=== PATIENT | male | born 1950 | race Caucasian/White ===

== ENCOUNTER 2018-04-19 15:26 | Inpatient (IN) | payer MEDICARE, OTHER ==
[~2018-04-19] VITALS: Ht 175.3 cm; Wt 98.9 kg
--- NOTE | 2018-04-19 15:34 | NUR ---
PT REFUSES MONITIR AND EKG AT THIS TIME.
[2018-04-19] MEDS ORDERED: ALEN70TA45 PO (16:18)
[2018-04-19] MEDS ORDERED: LEVO100T10 PO (16:18)
[2018-04-19] MEDS ORDERED: RISP2TAB23 PO (16:18)
[2018-04-19] MEDS ORDERED: SIMV20TA6 PO (16:18)
[2018-04-19] MEDS ORDERED: ASPI81TA31 PO (16:18)
[2018-04-19] MEDS ORDERED: CHOL200078 PO (16:18)
[2018-04-19] MEDS ORDERED: ALBU18HF2 IH (16:18)
[2018-04-19] MEDS ORDERED: TRIA80OI2 TP (16:18)
[2018-04-19] MEDS ORDERED: AMLO5TAB2 PO (16:18)
[2018-04-19] MEDS ORDERED: TIOT4MIS2 IH (16:18)
[2018-04-19] MEDS ORDERED: BENA20TA9 PO (16:18)
[2018-04-19 16:23] LABS: BASOPHILS % (AUTO) 0.5 % (0.0-2.0); EOSINOPHILS # (AUTO) 0.1 K/uL (0.0-0.7); HEMATOCRIT 42.9 % (36.7-47.1); HEMOGLOBIN 14.7 g/dL (12.5-16.3); MEAN CORPUSCULAR HEMOGLOBIN 31.6 uug (23.8-33.4); MEAN CORPUSCULAR HGB CONC 34 g/dL (32.5-36.3); MEAN CORPUSCULAR VOLUME 91.9 fL (73.0-96.2); MONOCYTES # (AUTO) 0.4 K/uL (2.0-10.0); MONOCYTES % (AUTO) 5.6 % (0.0-11.0); NEUTROPHILS # (AUTO) 5.4 K/uL (1.8-8.9); NEUTROPHILS % (AUTO) 78.9 % (38.5-71.5); PLATELET COUNT (AUTO) 184 K/uL (152-348); RED BLOOD CELL COUNT(AUTO) 4.66 MIL/uL (4.06-5.63); WHITE BLOOD COUNT (AUTO) 6.8 K/uL (3.6-10.2)
[2018-04-19 16:33] LABS: CARBON DIOXIDE 22 mmol/L (21-32); CHLORIDE 106 mmol/L (98-107); CREATININE 1.2 mg/dL (0.6-1.3); ETHANOL < 3 MG/DL (0-0); GLUCOSE 111 mg/dL (74-106); POTASSIUM 4.2 mmol/L (3.5-5.1); UREA NITROGEN, BLOOD 16 mg/dL (7-18)
[2018-04-19 16:39] LABS: ALANINE AMINOTRANSFERASE 29 U/L (16-63); ALKALINE PHOSPHATASE 61 U/L (50-136); ASPARTATE AMINOTRANSFERASE 23 U/L (15-37); BILIRUBIN,DIRECT 0.2 mg/dL (0.0-0.2); BILIRUBIN,TOTAL 0.7 mg/dL (0.2-1.0); TOTAL PROTEIN, SERUM 7.2 g/dL (6.4-8.2)
[2018-04-19 16:44] LABS: ACETAMINOPHEN < 2.0 ug/mL (10-30)
[2018-04-19 16:46] LABS: THYROID STIMULATING HORMONE 0.796 mIU/mL (0.358-3.740)
--- NOTE | 2018-04-19 17:00 | NUR ---
ROSY MEYER PROVIDED FOR PT.
--- NOTE | 2018-04-19 17:45 | NUR ---
PT TRANSFERED TO [facility] IN STABLE CONDITION
[2018-04-19] MEDS ORDERED: MAG HYDROX/AL HYDROX/SIMETH 30 ML LIQUID UDC PO PRN (18:00)
[2018-04-19] MEDS ORDERED: ACETAMINOPHEN 325 MG TABLET PO PRN (18:00)
[2018-04-19] MEDS ORDERED: MAGNESIUM HYDROXIDE 30 ML LIQUID UDC PO PRN (18:00)
[2018-04-19 18:49] LABS: *BLOOD, URINE NEGATIVE (NEGATIVE); *CLARITY,URINE CLEAR (CLEAR); *COLOR,URINE YELLOW (YELLOW); *KETONES,URINE TRACE (NEGATIVE); *PROTEIN,URINE 1+ (NEGATIVE); LEUKOCYTE ESTERASE ,URINE NEGATIVE (NEGATIVE); NITRITE, URINE NEGATIVE (NEGATIVE); PH,URINE 5.5 (5.0-8.0); UGLUCOSE NEGATIVE (NEGATIVE)
[2018-04-19 18:50] LABS: *BILIRUBIN,URIN 1+ (NEGATIVE)
[2018-04-19 18:57] LABS: *AMPHETAMINE, URINE NEGATIVE (NEGATIVE); *BARBITURATE, URINE NEGATIVE (NEGATIVE); *CANNABINOID, URINE NEGATIVE (NEGATIVE); *COCCAINE, URINE NEGATIVE (NEGATIVE); *OPIATE, URINE NEGATIVE (NEGATIVE); *PHENCYCLIDINE SCREEN,URINE NEGATIVE (NEGATIVE)
[2018-04-19 18:58] LABS: BACTERIA,URINE NONE SEEN /HPF (NONE SEEN); RBC,URINE 0-3 /HPF (0-3); SQUAMOUS EPITHELIAL CELL,UR FEW /HPF (NONE SEEN); YEAST,URINE FEW /HPF (NONE SEEN)
[2018-04-19 19:30] VITALS: BP 148/62
[2018-04-19] MEDS ORDERED: TEMAZEPAM 7.5 MG CAPSULE PO PRN (21:00)
--- NOTE | 2018-04-19 21:31 | NUR ---
GPS: Noted pt.to be banging on the window in his room. Pt.immediately stopped when staff went inside his room and got back to his bed. Denies feeling agitated. Ativan/Restoril offered but declined at this time. Contracts for his safety and others at this time. Will continue to monitor behavior for further escalation.
[2018-04-19] MEDS ORDERED: ALBUTEROL SULFATE 8 GM HFA.AER.AD IH PRN (23:30)
[2018-04-19] MEDS ORDERED: TRIAMCINOLONE ACET 0.1% OINT 60 GM TUBE TP PRN (23:30)
[2018-04-19] MEDS ORDERED: ALBUTEROL SULFATE 2.5 MG/3 ML NEBU INH PRN (23:45)
[2018-04-19] MEDS: LORAZEPAM 0.5 MG TABLET PO PRN (23:48)
--- NOTE | 2018-04-19 23:55 | NUR ---
GPS: Pt.is anxious,loud at times and unable to be re-directed. Ativan 0.5mg + Restoril 7.5 mg given for sleep. Will monitor effectiveness and for oversedation. Frequent limit setting provided to pt.prn.
--- NOTE | 2018-04-20 02:30 | NUR ---
GPS: Pt.still awake at this time. Frequently comes to the nurses station for no reason. Pt.yells at times and is intrusive. Constant re-direction and limit setting provided. Pt.getting testy with staff providing limits on him. Will continue to monitor.
--- NOTE | 2018-04-20 02:41 | NUR ---
GPS: Noted pt.to be singing out loud at times. When confronted pt said "I'm just having fun". Pt.was reminded that his behavior is inappropriate at this time.
[2018-04-20] MEDS: LORAZEPAM 0.5 MG TABLET PO PRN (05:54)
--- NOTE | 2018-04-20 05:55 | NUR ---
GPS: Anxious and intrusive at this time. Frequently at nurses station staring down at nurses. Easily irritable when being re-directed and when staff set limits on him. Refused Ativan 0.5mg when offered. Attempted to cheek his medication. Will continue to monitor.
[2018-04-20] MEDS ORDERED: LEVOTHYROXINE SODIUM 100 MCG TABLET PO SCH (07:30)
[2018-04-20] MEDS ORDERED: LORAZEPAM 1 MG TABLET PO PRN (08:15)
[2018-04-20] MEDS ORDERED: TRIAMCINOLONE ACET 0.1% OINT 60 GM TUBE TP PRN (08:15)
[2018-04-20] MEDS ORDERED: HALOPERIDOL LACTATE 5 MG/1 ML VIAL IM ONE (08:30)
[2018-04-20] MEDS ORDERED: LORAZEPAM 2 MG/1 ML VIAL IM ONE (08:30)
[2018-04-20] MEDS ORDERED: diphenhydrAMINE 50 MG/1 ML VIAL IM ONE (08:30)
--- NOTE | 2018-04-20 08:55 | NUR ---
GPS/RN- patient behavior escalating this am difficult to redirect. aggressive, anxious, restless, Dr Bella notified. Haldol 10mg IM once, Ativan 2mg IM once and Benadryl 25mg IM once. orders repeated back
[2018-04-20] MEDS ORDERED: ASPIRIN 81 MG TAB.CHEW PO SCH (09:00)
[2018-04-20] MEDS ORDERED: BENAZEPRIL HCL 20 MG TABLET PO SCH (09:00)
[2018-04-20] MEDS ORDERED: AMLODIPINE 5 MG TABLET PO SCH (09:00)
[2018-04-20] MEDS ORDERED: CHOLECALCIFEROL 1,000 UNIT TABLET PO SCH (09:00)
[2018-04-20] MEDS ORDERED: NICOTINE 21 MG/24HR PATCH TD SCH (09:00)
[2018-04-20] MEDS ORDERED: OLANZAPINE 10 MG VIAL IM ONE ×2 (10:30→16:15)
--- NOTE | 2018-04-20 10:30 | NUR ---
GPS/RN- patient continued agitated this am, destroying books and writing on other patients acitivity forms. patient pacing, intrusive to staff face. difficult to redirect posturing. Zyprexa 10mg IM once ordered by Dr Bella on unit here to see patient.
[2018-04-20] MEDS ORDERED: HALOPERIDOL 5 MG TABLET PO PRN (11:45)
[2018-04-20] MEDS ORDERED: BENZTROPINE MESYLATE 1 MG TABLET PO PRN (11:45)
[2018-04-20 12:51] VITALS: BP 131/76
--- NOTE | 2018-04-20 12:54 | NUR ---
GPS/RN- patient continues to escalate brother visited, patient angry because he cannot smoke. yelling shouting that he wants to smoke, angry, kicking unit exit door, [facility] [place] called.
[2018-04-20] MEDS ORDERED: OLANZAPINE 5 MG TABLET PO SCH (13:00)
--- NOTE | 2018-04-20 16:18 | NUR ---
GPS/RN- patient continues anxious this afternoon,restless, highly impulsive behavior. irritable aggressive, also noted hypersexual masturbating in room, patient frequently redirected. Dr Bella notified, intrusive at nursing station difficult to redirect. refuses vital signs, notified only have vitals from 1250pm this afternoon, continue with Zyprexa 10mg IM Once. orders read back
--- NOTE | 2018-04-20 16:51 | NUR ---
Social Work Transfer Note: Faxed packet to [facility] [phone] and spoke with Ivania at 1500. Pt. will be placed on a waiting list. Dr Jorgensen said pt. is not appropriate for the [facility]. Dr Gallardo said due to patient's age he cannot go to [facility] as he will need a 1:1. Spoke with Stephanie BLUNT at [facility]. Packet will be faxed to [facility] [phone]. [facility] will review packet.
[2018-04-20] MEDS ORDERED: DIVALPROEX 250 MG TABLET.DR PO SCH (17:00)
[2018-04-20] MEDS ORDERED: OLANZAPINE ZYDIS 5 MG TAB.RAPDIS PO SCH (17:00)
--- NOTE | 2018-04-20 17:03 | NUR ---
GPS/RN- Patient continues anxious, pacing, slamming bedroom door, redirected, irritable angry. Patient posturing, flexing his arm in the reflection of the mirror, throwing his fist in reflection of mirror showing security his strength, posturing. patient throwing his tuna sandwich in activity therapist room floor then demanding other food. constant redirection needed
--- NOTE | 2018-04-20 17:45 | NUR ---
GPS/RN- 1700 meds held, patient sleeping.
--- NOTE | 2018-04-20 19:09 | NUR ---
GPS/RN- patient accepted at [facility] 2nd Floor, spoke with Miriam in intake. Accepting Physician, Saniya Trinidad. patient being discharged to [facility]. patient aware, compliant of discharge at this time unable to safely sign discharge forms, aggressive unpredictable. unable to give writing material safely, verbal consent given continues on [address] Bella notified , provided with discharge orders. Spoke with Ivania Hi RN provided with nursing report. Patient continues manic, anxious aggressive impulsive, difficult to redirect, High Potential for Violence. Patients family aware, Brother, Juan Miguel. questions and concerns addressed.
--- NOTE | 2018-04-20 19:40 | NUR ---
GPS/RN- PATIENT DISCHARGED WITH ORIGINAL 72 HOUR HOLD.
[2018-04-20] MEDS ORDERED: SIMVASTATIN 20 MG TABLET PO SCH (21:00)
[2018-04-24] MEDS ORDERED: ALENDRONATE SODIUM 70 MG TABLET PO SCH (06:00)
== END 2018-04-20 19:40 | DRG 885 ==
LOC: ER 15:29 → GPS 17:24
PROVIDERS: ADMIT Psychiatry & Neurology Psychosomatic Medicine; ATTEND Internal Medicine
DX: F25.0 Schizoaffective disorder, bipolar type (principal); M19.90 Unspecified osteoarthritis, unspecified site; Z79.82 Long term (current) use of aspirin; Z79.899 Other long term (current) drug therapy; I10 Essential (primary) hypertension; F19.10 Other psychoactive substance abuse, uncomplicated
CPT/HCPCS: 36415; 70030-TC; 71045; 80307; 84443; 85025; 87086; 93005; A4663; G0480; G0480-TC; J1200; J1630; J2060; J2358; J3590